=== PATIENT | male | born 1985 | race Two or more races ===

== ENCOUNTER 2023-10-31 05:39 | Emergency (ER) | payer OTHER ==
[2023-10-31] MEDS ORDERED: ASPIRIN 81 MG CHEWABLE TABLET ONE (05:58)
[2023-10-31 06:06] LABS: Absolute Eosinophils 0.2 K/uL (0-0.5); Absolute Lymphocytes (CBC) 2.8 K/uL (0.7-4.9); Absolute Monocytes 0.4 K/uL (0.1-1.3); Absolute Neutrophil 2.1 K/uL (1.8-8.0); Basophils % 0.8 % (0-1.3); Hematocrit 39.8 % (39.6-49.0); Hemoglobin 13.8 g/dL (13.6-17.9); Lymphocytes % 51.6 % (15.3-44.8); MCH 30.6 pg (27.0-35.0); MCHC 34.6 g/dL (32.0-36.0); MCV 88.6 fL (80-100); MPV 6.3 fL (7.6-11.3); Monocytes % 6.6 % (3.3-12.3); Nucleated Red Blood Cells % 0.1 % (0-0); Platelets 309 thou/uL (152-406); RBC Red Blood Cell Count 4.49 M/uL (4.33-5.43); Red Cell Distribution Width 12.4 % (12.1-15.2)
[2023-10-31 06:21] LABS: PT Prothrombin Time 10.4 SECONDS (9.5-12.5); Protime INR 0.94
[2023-10-31 06:52] LABS: ALT/SGPT 91 U/L (16-61); Albumin 3.7 g/dL (3.4-5.0); Albumin/Globulin Ratio 1.1 (1.1-1.8); Alkaline Phosphatase 108 U/L (45-117); Anion Gap 7.9 mEq/L (5.0-15.0); BUN Blood Urea Nitrogen 12 mg/dL (7-18); Bicarbonate 25 mEq/L (21-32); Bilirubin Direct 0.1 mg/dL (0-0.2); Bilirubin Indirect, Calculated 0.5 mg/dL (0.2-0.8); Bilirubin Total 0.6 mg/dL (0.2-1.0); Globulin 3.5 g/dL (2.3-3.5); Glomerular Filtration Rate 115 ml/min (=/>90); Glucose Level 225 mg/dL (74-106); NT PRO-BNP 11 pg/mL (<125); Protein, Total 7.2 g/dL (6.4-8.2); Sodium Level 133 mEq/L (136-145)
[2023-10-31 06:53] LABS: AST/SGOT 36 U/L (15-37); Magnesium 1.9 mg/dL (1.6-2.4); Potassium 3.9 mEq/L (3.5-5.1); Troponin High Sensitivity < 3.0 pg/mL (<58.9)
--- NOTE | 2023-10-31 09:06 | ER ---
Nurse's Notes [facility] Name: Tory Dixon Age: 38 yrs Sex: Male : 1985 Arrival Date: 10/31/2023 Time: 05:39 Bed 5 Private MD: Diagnosis: Chest pain, unspecified Presentation: 10/30 05:50 Chief complaint: Patient states: chest pain. Coronavirus screen: Client denies travel vc1 out of the [place] in the last 14 days. At this time, the client does not indicate any symptoms associated with coronavirus-19. Ebola Screen: Patient negative for fever greater than or equal to 101.5 degrees Fahrenheit, and additional compatible Ebola Virus Disease symptoms Patient denies exposure to infectious person. Patient denies travel to an Ebola-affected area in the 21 days before illness onset. No symptoms or risks identified at this time. Initial Sepsis Screen: Does the patient meet any 2 criteria? No. Patient's initial sepsis screen is negative. Does the patient have a suspected source of infection? No. Patient's initial sepsis screen is negative. Risk Assessment: Do you want to hurt yourself or someone else? Patient reports no desire to harm self or others. Onset of symptoms was October 31, 2023 at 03:00. Care prior to arrival: None. Activity prior to arrival: None. Mechanism of Injury: No Mechanism of Injury. Transition of care: patient was not received from another setting of care. 05:50 Method Of Arrival: Ambulatory vc1 05:50 Acuity: CHARLENE 3 vc1 Triage Assessment: 05:52 General: Appears in no apparent distress. uncomfortable, obese, Behavior is vc1 cooperative. Pain: Complains of pain in anterior aspect of left upper chest Pain radiates to left arm Quality of pain is described as pressure, sharp, Pain began suddenly, 3 hours ago. Is continuous, Noted to be grimacing, Also complains of lightheaded. Neuro: Level of Consciousness is awake, alert, obeys commands, Oriented to person, place, time, situation, Appropriate for age Reports being lightheaded. Cardiovascular: Reports chest pain, lightheadedness, Heart tones S1 S2 Patient's skin is warm and dry. Chest pain is described as mild, quality is pressure, sharp, is located in left anterior radiates to left arm(s) began 3 hours prior to arrival episodes are continuous. Respiratory: Airway is patent Respiratory effort is even, unlabored, Respiratory pattern is regular, symmetrical. Derm: Skin is intact, is healthy with good turgor, Skin is dry, Skin is normal, Skin temperature is warm. Historical: - Allergies: 05:52 No Known Allergies; vc1 - Home Meds: 05:52 metformin 1,000 mg Oral tablet [Active]; lisinopril 10 mg Oral tablet [Active]; vc1 - PMHx: 05:52 Hypertensive disorder; Diabetes mellitus; vc1 - PSHx: 05:52 None; vc1 - Immunization history:: Adult Immunizations unknown. - Infectious Disease History:: Denies. - Social history:: Smoking status: Patient denies any tobacco usage or history of. - Family history:: not pertinent. Screenin:55 [facility] ED Fall Risk Assessment (Adult) History of falling in the last 3 months, vc1 including since admission No falls in past 3 months (0 pts) Confusion or Disorientation No (0 pts) Intoxicated or Sedated No (0 pts) Impaired Gait No (0 pts) Mobility Assist Device Used No (0 pt) Altered Elimination No (0 pt) Score/Fall Risk Level 0 - 2 = Low Risk Oriented to surroundings, Maintained a safe environment, Educated pt \T\ family on fall prevention, incl call for assistance when getting out of bed. Abuse screen: Denies threats or abuse. Nutritional screening: No deficits noted. Tuberculosis screening: No symptoms or risk factors identified. Assessment: 05:55 General: Appears in no apparent distress. comfortable, Behavior is calm, cooperative, bm8 appropriate for age. Pain: Complains of pain in anterior aspect of left upper chest and left breast Pain radiates to left arm Pain currently is 6 out of 10 on a pain scale. Quality of pain is described as pressure. Neuro: No deficits noted. Level of Consciousness is awake, alert, obeys commands, Oriented to person, place, time, situation. Cardiovascular: Reports chest pain, lightheadedness, since 0300 Heart tones S1 S2 present Capillary refill < 3 seconds Patient's skin is warm and dry. Rhythm is sinus rhythm. Respiratory: No deficits noted. Airway is patent Trachea midline Respiratory effort is even, unlabored, Respiratory pattern is regular, symmetrical. GI: No deficits noted. No signs and/or symptoms were reported involving the gastrointestinal system. : No deficits noted. No signs and/or symptoms were reported regarding the genitourinary system. EENT: No signs and/or symptoms were reported regarding the EENT system. Derm: No signs and/or symptoms reported regarding the dermatologic system. Musculoskeletal: No signs and/or symptoms reported regarding the musculoskeletal system. 06:41 Reassessment: Patient appears in no apparent distress at this time. No changes from bm8 previously documented assessment. Patient and/or family updated on plan of care and expected duration. Pain level reassessed. Patient is alert, oriented x 3, equal unlabored respirations, skin warm/dry/pink. 07:45 Reassessment: No changes from previously documented assessment. rs5 08:49 Reassessment: Patient and/or family updated on plan of care and expected duration. Pain rs5 level reassessed. Patient is alert, oriented x 3, equal unlabored respirations, skin warm/dry/pink. Vital Signs: 05:50 BP 145 / 102; Pulse 74; Resp 18; Temp 97.6; Pulse Ox 98% ; Weight 125 kg; Height 5 ft. vc1 9 in. ; 06:41 BP 124 / 86; Pulse 75; Resp 17; Temp 97.6; Pulse Ox 99% ; bm8 09:05 BP 140 / 91; Pulse 81; Resp 18; Pulse Ox 99% ; rs5 05:50 Body Mass Index 40.70 (125.00 kg, 175.26 cm) vc1 [place] Coma Score: 05:55 Eye Response: spontaneous(4). Motor Response: obeys commands(6). Verbal Response: bm8 oriented(5). Total: 15. ED Course: 05:44 Patient arrived in ED. vk 05:48 Phan Oropeza MD is Attending Physician. sp4 05:52 Triage completed. vc1 05:55 Yonny Shahid, RN is Primary Nurse. bm8 05:55 Arm band placed on right wrist. vc1 05:55 Door closed. Noise minimized. Lights dimmed. bm8 05:55 No provider procedures requiring assistance completed. Initial lab(s) drawn, by joseph barrios sent to lab. EKG done, by ED staff, reviewed by Phan Oropeza MD. Inserted saline lock: 20 gauge in right antecubital area, using aseptic technique. Blood collected. 05:56 Patient has correct armband on for positive identification. Placed in gown. Bed in low vc1 position. Call light in reach. air sampling and monitoring on. Pulse ox on. NIBP on. 06:05 XRAY Chest (1 view) In Process Unspecified. EDMS 07:00 Attending Physician role handed off by Phan Oropeza MD ec2 07:00 Olaf Mckoy MD is Attending Physician. ec2 07:13 Report given to demond neely. bm8 07:16 Primary Nurse role handed off by Yonny Shahid, DEMOND ec2 07:58 Dionna Sorenson, DEMOND is Primary Nurse. db 09:15 IV discontinued, intact, bleeding controlled, No redness/swelling at site. Pressure rs5 dressing applied. Administered Medications: 06:02 Drug: Aspirin PO Chewable Tablet 324 mg PO once; 81 mg tablets x 4 Route: PO; vc1 06:30 Follow up: Response: No adverse reaction bm8 Medication: 05:56 VIS not applicable for this client. vc1 Outcome: 09:05 Discharge ordered by . ec2 09:15 Discharged to home ambulatory, rs5 09:15 Condition: stable 09:15 Discharge instructions given to patient, family, Instructed on discharge instructions, follow up and referral plans. 09:16 Patient left the ED. rs5 Signatures: Dispatcher [employer] Zulema Foley RN RN vc1 Dionna Sorenson, RN DEMOND db Michael Dunham RN RN rs5 Phan Oropeza MD MD sp4 Olaf Mckoy MD MD 2 Sherry Lemus Brad, RN RN bm8 Corrections: (The following items were deleted from the chart) 09:15 08:51 BP 140 / 91; Pulse 81bpm; Resp 18bpm; Pulse Ox 99%; rs5 rs5
--- NOTE | 2023-10-31 09:06 | EDPHYS ---
Physician Documentation [facility] Name: Tory Dixon Age: 38 yrs Sex: Male : 1985 Arrival Date: 10/31/2023 Time: 05:39 Bed 5 Private MD: ED Olaf Paiz HPI: 10/30 05:48 This 38 yrs old [place] Male presents to ER via Unassigned with complaints of chest sp4 pain . 05:59 38-year-old male with past medical history diabetes type 2 hypertension presents with sp4 acute onset old midsternal chest discomfort associated with left arm pain. Patient states he was awakened this morning by chest discomfort associated with radiation into the left arm. Patient has history of type 2 diabetes mellitus patient takes metformin 1000 mg p.o. twice a day last hemoglobin A1c 8.3. Takes lisinopril 10 mg p.o. daily vitamin B1. No history of prior coronary stents. No history of significant coronary blockages.. Historical: - Allergies: 05:52 No Known Allergies; vc1 - Home Meds: 05:52 metformin 1,000 mg Oral tablet [Active]; lisinopril 10 mg Oral tablet [Active]; vc1 - PMHx: 05:52 Hypertensive disorder; Diabetes mellitus; vc1 - PSHx: 05:52 None; vc1 - Immunization history:: Adult Immunizations unknown. - Infectious Disease History:: Denies. - Social history:: Smoking status: Patient denies any tobacco usage or history of. - Family history:: not pertinent. ROS: 05:59 Constitutional: Negative for fever, chills, positive for chest pain sp4 05:59 All other systems are negative, Exam: 05:59 Constitutional: This is a well developed, well nourished patient who is awake, alert, sp4 and in no acute distress. Head/Face: Normocephalic, atraumatic. Eyes: Pupils equal round and reactive to light, extra-ocular motions intact. Lids and lashes normal. Conjunctiva and sclera are not injected. Cornea within normal limits. Periorbital areas with no swelling, redness, or edema. ENT: Nares patent. No nasal discharge, no septal abnormalities noted. Tympanic membranes are normal and external auditory canals are clear. Oropharynx with no redness, swelling, or masses, exudates, or evidence of obstruction, uvula midline. Mucous membranes moist. Neck: Trachea midline, no thyromegaly or masses palpated, and no cervical lymphadenopathy. Supple, full range of motion without nuchal rigidity, or vertebral point tenderness. Chest/axilla: Normal chest wall appearance and motion. Nontender with no deformity. No lesions are appreciated. Cardiovascular: Regular rate and rhythm with a normal S1 and S2. No gallops, murmurs, or rubs. Normal PMI, no JVD. No pulse deficits. Respiratory: Lungs have equal breath sounds bilaterally, clear to auscultation and percussion. No rales, rhonchi or wheezes noted. No increased work of breathing, no retractions or nasal flaring. Abdomen/GI: Soft, with normal bowel sounds. No distension or tympany. No guarding or rebound. No evidence of tenderness throughout. Back: No spinal tenderness. No costovertebral tenderness. Skin: Warm, dry with normal turgor. Normal color with no rashes, no lesions, and no evidence of cellulitis. MS/ Extremity: Pulses equal, no cyanosis. Neurovascular intact. Full, normal range of motion. Neuro: Awake and alert, GCS 15, oriented to person, place, time, and situation. Cranial nerves II-XII grossly intact. Motor strength 5/5 in all extremities. Sensory grossly intact. Psych: Awake, alert, with orientation to person, place and time. Behavior, mood, and affect are within normal limits 06:27 ECG was reviewed by the Attending Physician. 0 549 normal sinus rhythm rate 74 sp4 Vital Signs: 05:50 BP 145 / 102; Pulse 74; Resp 18; Temp 97.6; Pulse Ox 98% ; Weight 125 kg; Height 5 ft. vc1 9 in. ; 06:41 BP 124 / 86; Pulse 75; Resp 17; Temp 97.6; Pulse Ox 99% ; bm8 09:05 BP 140 / 91; Pulse 81; Resp 18; Pulse Ox 99% ; rs5 05:50 Body Mass Index 40.70 (125.00 kg, 175.26 cm) vc1 [place] Coma Score: 05:55 Eye Response: spontaneous(4). Motor Response: obeys commands(6). Verbal Response: bm8 oriented(5). Total: 15. MDM: 05:57 Patient medically screened. sp4 07:01 Data reviewed: vital signs. ec2 07:02 ED course: patient signed out to me by previous physician, improved patient arrives ec2 today due to concern for chest pain. Lab work reviewed by me, shows reassuring metabolic profile, CBC that is reassuring, troponin that is within normal ranges. Plan is to obtain repeat EKG and troponin.. 07:11 ED course: Dependently reviewed and interpreted by me, shows normal sinus rhythm, rate ec2 of 74, no acute ST segment elevations, intervals are nonconcerning.. 07:12 ED course: Chest x-ray shows no acute intrathoracic process.. ec2 08:20 ED course: Repeat EKG independently reviewed and interpreted by me, shows normal sinus ec2 rhythm, rate of 74, no acute ST segment elevations, intervals are nonconcerning.. 09:05 ED course: Repeat troponin is unremarkable. Will discharge home. Return precautions ec2 given.. 10/30 05:49 Order name: Basic Metabolic Panel; Complete Time: 07:00 sp4 10/30 05:49 Order name: CBC with Diff; Complete Time: 06:27 sp4 10/30 05:49 Order name: LFT's; Complete Time: 07:00 sp4 10/30 05:49 Order name: Magnesium; Complete Time: 07:00 sp4 10/30 05:49 Order name: NT PRO-BNP; Complete Time: 07:00 sp4 10/30 05:49 Order name: PT-INR; Complete Time: 06:27 sp4 10/30 05:49 Order name: Troponin HS; Complete Time: 07:00 sp4 10/30 07:56 Order name: Troponin High Sensitivity; Complete Time: 09:04 ec2 10/30 05:49 Order name: XRAY Chest (1 view) sp4 10/30 05:49 Order name: Cardiac monitoring; Complete Time: 05:57 sp4 10/30 05:49 Order name: EKG - Nurse/Tech; Complete Time: 05:57 sp4 10/30 05:49 Order name: IV Saline Lock; Complete Time: 05:57 sp4 10/30 05:49 Order name: Labs collected and sent; Complete Time: 05:57 sp4 10/30 05:49 Order name: O2 Per Protocol; Complete Time: 05:57 sp4 10/30 05:49 Order name: O2 Sat Monitoring; Complete Time: 05:57 sp4 10/30 07:56 Order name: EKG - Nurse/Tech; Complete Time: 08:49 ec2 10/30 07:56 Order name: Misc. Order: repeat ekg/trop; Complete Time: 08:49 ec2 EC:27 Rate is 74 beats/min. Rhythm is regular, Normal Sinus Rhythm. QRS [place] is Normal. OR sp4 interval is normal. QRS interval is normal. QT interval is normal. No Q waves. T waves are Normal. No ST changes noted. Clinical impression: Normal ECG. Interpreted by me. Reviewed by me. Administered Medications: 06:02 Drug: Aspirin PO Chewable Tablet 324 mg PO once; 81 mg tablets x 4 Route: PO; vc1 06:30 Follow up: Response: No adverse reaction bm8 Disposition Summary: 10/31/23 09:05 Discharge Ordered Notes: Location: Home ec2 Condition: Stable ec2 Diagnosis - Chest pain, unspecified ec2 Followup: ec2 - With: Private Physician - When: - Reason: Re-evaluation by your physician Discharge Instructions: - Discharge Summary Sheet ec2 - Nonspecific Chest Pain, Adult, [id number] ec2 Forms: - Medication Reconciliation Form ec2 - Antibiotic Education ec2 - Prescription Opioid Use ec2 - Patient Portal Instructions ec2 - Leadership Thank You Letter ec2 Signatures: Dispatcher [employer] EDZulema Johnson RN RN vc1 Phan Oropeza MD MD sp4 Olaf Mckoy MD MD ec2 Yonny Shahid RN bm8 Corrections: (The following items were deleted from the chart) 05:49 05:49 BASIC METABOLIC PANEL+C.LAB.BRZ ordered. EDMS EDMS 05:49 05:49 CBC+H.LAB.BRZ ordered. EDMS EDMS 05:50 05:49 HEPATIC FUNCTION+C.LAB.BRZ ordered. EDMS EDMS 05:50 05:49 MAGNESIUM+C.LAB.BRZ ordered. EDMS EDMS 05:50 05:49 PROBNP+C.LAB.BRZ ordered. EDMS EDMS 05:50 05:49 PROTIME (+INR)+COAG.LAB.BRZ ordered. EDMS EDMS 05:50 05:49 Troponin High Sensitivity+C.LAB.BRZ ordered. EDMS EDMS 05:50 05:50 Chest Single View+RAD.RAD.BRZ ordered. EDMS EDMS 08:20 08:20 ED course: EKG independently reviewed and interpreted by me, shows normal sinus ec2 rhythm, rate of 74, no acute ST segment elevations, intervals are nonconcerning.. ec2
[2023-10-31 09:27] VITALS: BP 140/91; TEMP 97.6; O2SAT 99
--- NOTE | 2023-10-31 10:24 | RAD REPORT ---
EXAM DESCRIPTION: Chest Single View CLINICAL HISTORY: CHEST PAIN COMPARISON: None TECHNIQUE: Single AP view of the chest. FINDINGS: Lung volumes adequate. Cardiac silhouette is normal in size. No pneumothorax. No large pleural effusion. No focal consolidation. No acute bony finding. IMPRESSION: No evidence of acute cardiopulmonary disease. Electronically signed by: Sapna aT MD 10/31/2023 06:33 AM CDT Due to temporary technical issues with the PACS/Fluency reporting system, reports are being signed by the in house radiologists without review as a courtesy to insure prompt reporting. The interpreting radiologist is fully responsible for the content of the report.
--- NOTE | 2023-10-31 13:59 | EKG ---
Test Date: 2023-10-31 Test Time: 05:49:34 Crime Victim Specialist: YAMEL MEASUREMENT RESULTS: Intervals: Rate: 74 OK: 140 QRSD: 98 QT: 392 QTc: 435 [place]: P: 54 OK: 140 QRS: 8 T: 21 INTERPRETIVE STATEMENTS: Normal sinus rhythm Normal ECG No previous ECG available for comparison Electronically Signed On 10-31-23 13:57:54 CDT by Claude Barajas
--- NOTE | 2023-11-01 13:08 | EKG ---
Test Date: 2023-10-31 Test Time: 08:07:49 Cloth Stock Sorter: ANDRES MEASUREMENT RESULTS: Intervals: Rate: 74 VA: 138 QRSD: 96 QT: 394 QTc: 437 [place]: P: 48 VA: 138 QRS: 2 T: 15 INTERPRETIVE STATEMENTS: Normal sinus rhythm Normal ECG Compared to ECG 10/31/2023 05:49:34 No significant changes Electronically Signed On 11-01-23 13:07:01 CDT by Claude Barajas
== END 2023-10-31 09:16 | disposition home or self-care (01) ==
LOC: ER 05:39
DX: R07.9 Chest pain, unspecified (principal); I10 Essential (primary) hypertension; E11.9 Type 2 diabetes mellitus without complications
CPT/HCPCS: 36415; 71045; 80048; 80076; 83735; 83880; 84484; 85025; 85610; 93005